=== PATIENT | female | born 1955 | race Caucasian/White ===

== ENCOUNTER 2022-06-20 09:18 | Outpatient (CLI) | payer MEDICARE, SELFPAY ==
[2022-06-20 14:07] LABS: SARS PCR* Negative SARS-CoV-2 (Negative)
== END 2022-06-20 09:19 | disposition home or self-care (01) ==
LOC: LONREF 09:18
PROVIDERS: PCP Nurse Practitioner Family; Visit Provider Internal Medicine
DX: Z11.52 Encounter for screening for COVID-19 (principal)
CPT/HCPCS: 87635

== ENCOUNTER 2022-06-21 10:05 | Outpatient (CLI) | payer MEDICARE, SELFPAY | END 2022-06-21 10:06 | disposition home or self-care (01) | PROVIDERS: PCP Nurse Practitioner Family; Visit Provider Internal Medicine | DX: Z12.11 Encounter for screening for malignant neoplasm of colon (principal); K63.5 Polyp of colon; K57.30 Diverticulosis of large intestine without perforation or abscess without bleeding; Z80.0 Family history of malignant neoplasm of digestive organs | CPT/HCPCS: 45385; 88305; J2250; J3010 ==

== ENCOUNTER 2022-09-26 09:34 | Outpatient (CLI) | payer MEDICARE, SELFPAY ==
--- NOTE | 2022-09-26 10:15 | CRLHL7_ITS ---
For Patients: As a result of the Cures Act, medical imaging exams and procedure reports are released immediately into your electronic medical record. You may view this report before your referring provider. If you have questions, please contact your health care provider. BILATERAL SCREENING MAMMOGRAM WITH COMPUTER-AIDED DETECTION AND TOMOSYNTHESIS TECHNIQUE: CC and MLO views were obtained. These mammographic images have been obtained using full-field digital technique. These mammographic images were interpreted with the benefit of computer-aided detection. Breast Tomosynthesis was used in this interpretation. COMPARISON FILM: 09/24/21, 08/17/20, 09/19/16. FINDINGS: There are scattered areas of fibroglandular density. IMPRESSION: There is no radiographic evidence for malignancy. ASSESSMENT: BI-RADS Category 2: Benign RECOMMENDATION: Routine screening mammogram in 1 year. A lay language report of this examination will be provided to the patient. Carlos King M.D. Diagnostic Radiologist [email or web address] Transcribed: 2:01 p.m. PHYLLIS/Dictated by: Carlos King MD @ 09/26/2022 11:40:00 AM (Electronically Signed)
== END 2022-09-26 09:35 | disposition home or self-care (01) ==
LOC: MAMMO 09:35
PROVIDERS: PCP Nurse Practitioner Family; Visit Provider Nurse Practitioner Family
DX: Z12.31 Encounter for screening mammogram for malignant neoplasm of breast (principal)
CPT/HCPCS: 77063; 77067

== ENCOUNTER 2023-01-13 12:12 | Outpatient (CLI) | payer MEDICARE, SELFPAY | END 2023-01-13 12:13 | disposition home or self-care (01) | LOC: NFLDREF 01-15 08:15 | PROVIDERS: PCP Nurse Practitioner Family; Referring Provider Nurse Practitioner Family; Visit Provider Family Medicine | DX: R30.0 Dysuria (principal); N39.0 Urinary tract infection, site not specified | CPT/HCPCS: 87086; 87186 ==

== ENCOUNTER 2024-01-26 09:00 | Outpatient (CLI) | payer MEDICARE, SELFPAY | END 2024-01-26 09:01 | disposition home or self-care (01) | PROVIDERS: PCP Physician Assistant Medical; Visit Provider Physician Assistant Medical | DX: E78.5 Hyperlipidemia, unspecified (principal); Z11.4 Encounter for screening for human immunodeficiency virus [HIV]; Z11.59 Encounter for screening for other viral diseases | CPT/HCPCS: 80053; 80061; 86703; 86803 ==

== ENCOUNTER 2024-02-25 13:44 | Outpatient (CLI) | payer MEDICARE, SELFPAY ==
--- NOTE | 2024-02-25 14:00 | XR_ITS ---
Patient: DHEERAJ BURTON Facility:?[facility] Patient ID:?[id number] Site Patient ID:?[id number]. Site :?[id number] Study:?DEXA-Bone Density -02/25/2024 2:27:20 PM Ordering Physician:CARL Final Report: DXA BONE MINERAL DENSITY STUDY Reason for exam: Encounter for screening for osteoporosis. Asymptomatic menopausal state. Current height (in): 65. Weight (lb): 170. Menopause age: 53. Ethnicity: White. 1. Have you had a previous hip or vertebral fracture? No. 2. Have you had any fractures during your adult life which did not result from significant trauma (e.g., auto accident)? No. 3. Did either of your parents have a hip fracture? No. 4. Do you smoke? No. 5. Have you ever taken Glucocorticoids? No. 6. Do you have rheumatoid arthritis? No. 7. Do you have secondary osteoporosis? No. 8. Do you drink 3 or more alcoholic drinks per day? No. 9. Are you being treated for osteoporosis? No. 10. Have you ever taken any of the following medications: Actonel, Evista, Fosamax, Miacalcin, Reclast, Boniva, Forteo, HRT (i.e. estrogen/hormone therapy), Protelos, Prolia, Vitamin D, Calcium, other ? please specify. ANSWER: No. 11. Do you have any of the following medical conditions: Anorexia or bulimia, asthma or emphysema, end stage renal disease, hyperparathyroidism, any seizure disorders, cancer, inflammatory bowel diseases, hysterectomy, other ? please specify. ANSWER: No. 12. What was your maximum height (inches)? 64. 13. Do you perform weight bearing exercise regularly? No. 14. Do you regularly consume dairy products? Yes. 15. Do you drink caffeinated beverages? Yes. 16. At what age did your period start? 16. 17. Are you premenopausal? No. 18. How many full term pregnancies have you had? 3. 19. Have you ever missed your period for more than 6 months in a row (not including or menopause)? No. TECHNIQUE: Bone mineral density study was performed using the [employer]. FINDINGS: The results of the study expressed as bone mineral density (BMD) are as follows: Lumbar spine L1 to L4: BMD: 0.792 g/cm2. T-score: -2.3. Z-score: -0.2. Neck Left: BMD: 0.750 g/cm2. T-score: -0.9. Z-score: 0.9. Right: BMD: 0.756 g/cm2. T-score: -0.8. Z-score: 1.0. Total Left: BMD: 0.880 g/cm2. T-score: -0.5. Z-score: 1.0. Right: BMD: 0.850 g/cm2. T-score: -0.8. Z-score: 0.8. IMPRESSION: Osteopenia. *Comparison exams done prior to 03/2020 were performed on different unit, [facility]. COMPARISON: Compared with scan of 08/17/2020, the bone mineral density has decreased by 2.7 percent at the spine and decreased by 9.4 percent at the hip. FRAX 10-year Fracture Risk Major Osteoporotic Fracture: 8.6 percent Hip Fracture: 0.9 percent Reported Risk Factors: [place] () Neck BMD=0.750, BMI=28.3 Carlos King M.D. Diagnostic Radiologist [email or web address] DSM/sp R& Transcribed: 7:57 p.m. SP/Dictated by: Carlos King MD @ 02/26/2024 9:20:00 AM Signed by:Juno King MD @02/27/2024 5:25:05 AM (Electronic Signature)
== END 2024-02-25 13:45 | disposition home or self-care (01) ==
LOC: RAD 13:44
PROVIDERS: PCP Physician Assistant Medical; Visit Provider Physician Assistant Medical
DX: Z13.820 Encounter for screening for osteoporosis (principal); M85.89 Other specified disorders of bone density and structure, multiple sites; Z78.0 Asymptomatic menopausal state
CPT/HCPCS: 77080

== ENCOUNTER 2024-05-04 08:28 | Outpatient (CLI) | payer MEDICARE, SELFPAY | END 2024-05-04 08:29 | disposition home or self-care (01) | LOC: NFLDREF 05-05 08:26 | PROVIDERS: PCP Physician Assistant Medical; Referring Provider Physician Assistant Medical; Visit Provider Physician Assistant Medical | DX: E78.5 Hyperlipidemia, unspecified (principal) | CPT/HCPCS: 80061; 80076 ==

== ENCOUNTER 2024-07-06 13:11 | Outpatient (CLI) | payer MEDICARE, SELFPAY ==
--- NOTE | 2024-07-06 13:40 | CRLHL7_ITS ---
For Patients: As a result of the Century Cures Act, medical imaging exams and procedure reports are released immediately into your electronic medical record. You may view this report before your referring provider. If you have questions, please contact your health care provider. BILATERAL SCREENING MAMMOGRAM WITH COMPUTER-AIDED DETECTION AND TOMOSYNTHESIS TECHNIQUE: CC and MLO views were obtained. These mammographic images have been obtained using full-field digital technique. These mammographic images were interpreted with the benefit of computer-aided detection. Breast Tomosynthesis was used in this interpretation. COMPARISON FILM: 09/26/22, 09/24/21, 08/17/20. FINDINGS: There are scattered areas of fibroglandular density. IMPRESSION: There is no radiographic evidence for malignancy. ASSESSMENT: BI-RADS Category 1: Negative RECOMMENDATION: Routine screening mammogram in 1 year. A lay language report of this examination will be provided to the patient. Carlos King M.D. Diagnostic Radiologist [email or web address] SP/Dictated by: Carlos King MD @ 07/09/2024 10:55:00 AM (Electronically Signed)
== END 2024-07-06 13:12 | disposition home or self-care (01) ==
LOC: MAMMO 13:11
PROVIDERS: PCP Physician Assistant Medical; Visit Provider Physician Assistant Medical
DX: Z12.31 Encounter for screening mammogram for malignant neoplasm of breast (principal)
CPT/HCPCS: 77063; 77067